=== PATIENT | female | born 1950 | race Caucasian/White ===

== ENCOUNTER 2018-02-23 15:28 | Inpatient (IN) ==
[2018-02-23] MEDS ORDERED: NS 1000 ML 1,000 ML ONE (15:44)
[2018-02-23] MEDS ORDERED: NS 1000 ML 1,000 ML IV SCH (16:00)
[2018-02-23 16:30] LABS: ABG BASE EXCESS 5.5 mmol/L (-2.0-2.0); ABG HCO3 29.9 mmol/L (22-26)
[2018-02-23 16:31] LABS: ABG ALLEN TEST POS; FRACTIONATED INSPIRED OXYGEN 21
[2018-02-23 16:33] VITALS: BMI 47.4
[2018-02-23] MEDS ORDERED: PREVNAR 13 IM ONE (16:33)
[2018-02-23] MEDS ORDERED: DUONEB 0.5 MG/3 MG NEB PRN (16:50)
--- NOTE | 2018-02-23 17:28 | RAD ---
PA and lateral Chest Indication: Shortness of breath Comparison: None available Findings: The trachea is midline. The cardiac silhouette is unremarkable. Increased central peribronchial thi ckening and prominence likely in the setting of pulmonary vascular congestion and or venous hypertens ion however a mild central bronchitis is a possibility in the appropriate clinical setting. No focal airspace opacity, pleural effusion or pneumothorax. The bony thorax is unremarkable. IMPRESSION: 1. No acute cardiopulmonary abnormality. Reported By:
[2018-02-23] MEDS ORDERED: ZOFRAN TAB 4 MG PO PRN (17:50)
[2018-02-23] MEDS ORDERED: ZOFRAN INJ 4 MG VIAL ONE (17:51)
[2018-02-23] MEDS ORDERED: NS 50 ML IV 50 ML IV ONE ×2 (17:51→17:59)
[2018-02-23] MEDS ORDERED: ZOFRAN INJ 4 MG VIAL IVP ONE (17:58)
[2018-02-23] MEDS: COREG TAB 6.25 MG PO SCH (18:03)
[2018-02-23] MEDS ORDERED: LASIX IVP ONE (18:39)
[2018-02-23] MEDS ORDERED: LASIX ONE (18:39)
[2018-02-23] MEDS: LASIX IVP SCH (18:43)
[2018-02-23] MEDS: REQUIP PO SCH (20:20)
[2018-02-24 05:21] LABS: BASOPHILS # (AUTO) 0.1 X10^3/uL (0.0-0.1); BASOPHILS % (AUTO) 0.9 % (0.2-1.0); EOSINOPHILS # (AUTO) 0.2 x10^3/uL (0.0-0.2); EOSINOPHILS % (AUTO) 2.2 % (0.9-2.9); HEMATOCRIT 30.8 % (36.0-47.0); HEMOGLOBIN 10.2 g/dL (12.0-16.0); LYMPHOCYTES # (AUTO) 1.1 X10^3/uL (1.3-2.9); MEAN CORPUSCULAR HEMOGLOBIN 27.6 pg (27.0-34.0); MEAN CORPUSCULAR VOLUME 83.6 fL (80.0-100.0); MEAN PLATELET VOLUME 7.5 fL (7.4-11.0); MONOCYTES # (AUTO) 0.9 x10^3/uL (0.3-0.8); MONOCYTES % (AUTO) 12.4 % (0.0-13.0); NEUTROPHILS # (AUTO) 5.4 x10^3/uL (2.2-4.8); NEUTROPHILS % (AUTO) 70.5 % (42.0-75.0); PLATELET COUNT 257 X10^3/uL (150.0-450.0); RED BLOOD COUNT 3.69 X10^6/uL (3.5-5.4); RED CELL DISTRIBUTION WIDTH 15.8 % (11.6-16.5); WHITE BLOOD COUNT 7.6 X10^3/uL (3.6-10.0)
[2018-02-24 05:29] LABS: ALANINE AMINOTRANSFERASE 17 Units/L (12-78); ALBUMIN 3.1 g/dL (3.4-5.0); ALKALINE PHOSPHATASE 77 Units/L (46-116); ASPARTATE AMINO TRANSFERASE 10 Units/L (15-37); BLOOD UREA NITROGEN 14 mg/dL (7-18); CALCIUM 9.2 mg/dL (8.5-10.1); CARBON DIOXIDE 32.2 mmol/L (21-32); CHLORIDE 100 mmol/L (98-107); COR CA(FOR HYPOALB) 9.9 mg/dL (8.5-10.1); COR NA(FOR HYPERGLY) 140 mmol/L (136-145); CREATININE 0.92 mg/dL (0.55-1.02); MAGNESIUM 1.3 mg/dL (1.7-2.9); SODIUM 140 mmol/L (136-145); TOTAL PROTEIN 6.2 g/dL (6.4-8.2); eGFR NON BLACK RACES > 60 (>60)
[2018-02-24] MEDS ORDERED: KLOR-CON PO PRN (06:16)
[2018-02-24] MEDS ORDERED: POTASSIUM CHL 60 MEQ/NS 0.45% 500 ML IV PRN (06:16)
[2018-02-24] MEDS ORDERED: POTASSIUM CHL 40 MEQ/NS 0.45% 500 ML IV PRN (06:16)
[2018-02-24] MEDS ORDERED: K-RIDER 10 MEQ/NS 100 ML 10 MEQ/100 ML BAG IV PRN (06:16)
[2018-02-24] MEDS ORDERED: MICRO K EXTEN CAP 10 MEQ PO PRN (06:16)
[2018-02-24] MEDS ORDERED: POTASSIUM CHLORIDE LIQ 20 MEQ UDC PO PRN (06:16)
[2018-02-24] MEDS: COREG TAB 6.25 MG PO SCH ×2 (06:18→09:30)
[2018-02-24] MEDS: MAGNESIUM SULFATE 1 GRAM/100 mL PREMIX 1 GM/100 ML BAG IV PRN ×4 (06:29→11:03)
[2018-02-24] MEDS: K-DUR TAB 20 MEQ PO PRN ×2 (06:34→10:27)
[2018-02-24] MEDS ORDERED: MAGNESIUM SULFATE 1 GRAM/100 mL PREMIX 1 G/100 ML BAG IV ONE ×3 (07:39→10:36)
[2018-02-24] MEDS ORDERED: SITAGLIPTIN METFORMIN PO SCH (09:00)
[2018-02-24] MEDS: HYZAAR 50/12.5 MG PO SCH (09:24)
[2018-02-24] MEDS: NexIUM PO SCH (09:24)
[2018-02-24] MEDS: LASIX IVP SCH ×2 (09:25→09:32)
[2018-02-24] MEDS: CYMBALTA PO SCH (09:30)
[2018-02-24] MEDS: COREG TAB 12.5 MG PO SCH (09:30)
[2018-02-24] MEDS ORDERED: GLUCOPHAGE ONE (10:19)
[2018-02-24] MEDS ORDERED: JANUVIA PO ONE (10:19)
[2018-02-24] MEDS ORDERED: LASIX ONE (10:19)
[2018-02-24] MEDS ORDERED: K-DUR TAB 20 MEQ PO ONE (10:19)
[2018-02-24] MEDS: JANUVIA PO SCH (10:26)
[2018-02-24] MEDS: LASIX PO SCH (10:27)
[2018-02-24] MEDS: GLUCOPHAGE PO SCH (10:27)
[2018-02-24] MEDS: REQUIP PO SCH (20:42)
[2018-02-24] MEDS: ULTRAM PO PRN (20:42)
[2018-02-25] MEDS: COREG TAB 12.5 MG PO SCH ×3 (00:06→08:01)
[2018-02-25 06:16] LABS: CALCIUM 9.2 mg/dL (8.5-10.1); CARBON DIOXIDE 33.1 mmol/L (21-32); CREATININE 1.99 mg/dL (0.55-1.02); MAGNESIUM 2.5 mg/dL (1.7-2.9)
[2018-02-25] MEDS ORDERED: GLUCOPHAGE ONE (07:43)
[2018-02-25] MEDS: CYMBALTA PO SCH (08:02)
[2018-02-25] MEDS: NexIUM PO SCH (08:02)
[2018-02-25] MEDS: GLUCOPHAGE PO SCH (08:02)
[2018-02-25] MEDS: JANUVIA PO SCH (08:02)
[2018-02-25] MEDS: LASIX PO SCH (08:02)
[2018-02-25] MEDS: HYZAAR 50/12.5 MG PO SCH (08:02)
[2018-02-25 20:04] LABS: CALCIUM 9.5 mg/dL (8.5-10.1); CARBON DIOXIDE 30.2 mmol/L (21-32); CREATININE 2.27 mg/dL (0.55-1.02)
[2018-02-25] MEDS ORDERED: NS 500 ML IV 500 ML IV ONE (20:31)
[2018-02-25] MEDS: REQUIP PO SCH (20:39)
[2018-02-25] MEDS: COREG TAB 6.25 MG PO SCH (20:39)
[2018-02-25] MEDS: NS 1000 ML 1,000 ML IV SCH (20:47)
[2018-02-25] MEDS: ULTRAM PO PRN (20:47)
[2018-02-26 05:46] LABS: BASOPHILS # (AUTO) 0.1 X10^3/uL (0.0-0.1); EOSINOPHILS # (AUTO) 0.4 x10^3/uL (0.0-0.2); EOSINOPHILS % (AUTO) 5.2 % (0.9-2.9); HEMATOCRIT 30.3 % (36.0-47.0); HEMOGLOBIN 9.9 g/dL (12.0-16.0); LYMPHOCYTES # (AUTO) 1.4 X10^3/uL (1.3-2.9); LYMPHOCYTES % (AUTO) 20.3 % (21.0-51.0); MEAN CORPUSCULAR HEMOGLOBIN 27.5 pg (27.0-34.0); MEAN CORPUSCULAR HGB CONC 32.7 g/dL (33.0-35.0); MEAN PLATELET VOLUME 7.8 fL (7.4-11.0); MONOCYTES # (AUTO) 0.7 x10^3/uL (0.3-0.8); MONOCYTES % (AUTO) 9.4 % (0.0-13.0); NEUTROPHILS # (AUTO) 4.6 x10^3/uL (2.2-4.8); NEUTROPHILS % (AUTO) 64.1 % (42.0-75.0); PLATELET COUNT 263 X10^3/uL (150.0-450.0); RED BLOOD COUNT 3.61 X10^6/uL (3.5-5.4); WHITE BLOOD COUNT 7.1 X10^3/uL (3.6-10.0)
[2018-02-26 06:06] LABS: ALANINE AMINOTRANSFERASE 16 Units/L (12-78); ALKALINE PHOSPHATASE 83 Units/L (46-116); ASPARTATE AMINO TRANSFERASE 13 Units/L (15-37); BLOOD UREA NITROGEN 27 mg/dL (7-18); CALCIUM 9.3 mg/dL (8.5-10.1); CARBON DIOXIDE 26.6 mmol/L (21-32); CHLORIDE 99 mmol/L (98-107); COR CA(FOR HYPOALB) 10.1 mg/dL (8.5-10.1); CREATININE 1.74 mg/dL (0.55-1.02); SODIUM 134 mmol/L (136-145); TOTAL PROTEIN 6.1 g/dL (6.4-8.2); eGFR NON BLACK RACES 31 (>60)
--- NOTE | 2018-02-26 07:04 | RAD ---
Examination: PA chest History: CHF Comparison 02/23/2018 Findings: Transverse heart diameter remains borderline enlarged. Essentially clear lungs and pleural spaces. There is no evidence for pneumonia, pulmonary edema or pleural fluid. Impression: Upper normal heart size, no acute process demonstrated. Reported By:
[2018-02-26] MEDS ORDERED: NS 500 ML IV 500 ML IV ONE (08:43)
[2018-02-26] MEDS: CYMBALTA PO SCH (08:48)
[2018-02-26] MEDS: NexIUM PO SCH (08:48)
[2018-02-26] MEDS: COREG TAB 6.25 MG PO SCH ×2 (08:48→20:31)
[2018-02-26] MEDS: JANUVIA PO SCH (08:48)
[2018-02-26] MEDS: NS 1000 ML 1,000 ML IV SCH ×3 (09:11→17:22)
[2018-02-26] MEDS: XARELTO PO SCH ×2 (10:30→20:31)
[2018-02-26 16:44] LABS: BLOOD UREA NITROGEN 25 mg/dL (7-18); CALCIUM 8.9 mg/dL (8.5-10.1); CARBON DIOXIDE 26.9 mmol/L (21-32); CHLORIDE 99 mmol/L (98-107); CREATININE 1.21 mg/dL (0.55-1.02); SODIUM 134 mmol/L (136-145); eGFR NON BLACK RACES 47 (>60)
[2018-02-26 16:59] LABS: B-TYPE NATRIURETIC PEPTIDE 67.7 pg/mL (0-79)
[2018-02-26] MEDS ORDERED: NS 1000 ML 1,000 ML IV SCH (17:00)
[2018-02-26] MEDS: REQUIP PO SCH (20:31)
[2018-02-26] MEDS: ULTRAM PO PRN (20:34)
[2018-02-27] MEDS: NS 1000 ML 1,000 ML IV SCH ×2 (01:15→07:07)
[2018-02-27 05:57] LABS: BASOPHILS # (AUTO) 0.1 X10^3/uL (0.0-0.1); BASOPHILS % (AUTO) 1.4 % (0.2-1.0); EOSINOPHILS # (AUTO) 0.3 x10^3/uL (0.0-0.2); EOSINOPHILS % (AUTO) 5.4 % (0.9-2.9); HEMATOCRIT 27.7 % (36.0-47.0); HEMOGLOBIN 9.1 g/dL (12.0-16.0); LYMPHOCYTES % (AUTO) 18.3 % (21.0-51.0); MEAN CORPUSCULAR HEMOGLOBIN 27.4 pg (27.0-34.0); MEAN CORPUSCULAR VOLUME 83.1 fL (80.0-100.0); MEAN PLATELET VOLUME 7.4 fL (7.4-11.0); MONOCYTES # (AUTO) 0.5 x10^3/uL (0.3-0.8); MONOCYTES % (AUTO) 9.4 % (0.0-13.0); NEUTROPHILS # (AUTO) 3.8 x10^3/uL (2.2-4.8); NEUTROPHILS % (AUTO) 65.5 % (42.0-75.0); PLATELET COUNT 222 X10^3/uL (150.0-450.0); RED BLOOD COUNT 3.33 X10^6/uL (3.5-5.4); RED CELL DISTRIBUTION WIDTH 15.8 % (11.6-16.5); WHITE BLOOD COUNT 5.7 X10^3/uL (3.6-10.0)
[2018-02-27 06:18] LABS: ALANINE AMINOTRANSFERASE 15 Units/L (12-78); ALBUMIN 2.8 g/dL (3.4-5.0); ALKALINE PHOSPHATASE 80 Units/L (46-116); ASPARTATE AMINO TRANSFERASE 13 Units/L (15-37); BLOOD UREA NITROGEN 22 mg/dL (7-18); CALCIUM 8.6 mg/dL (8.5-10.1); CARBON DIOXIDE 28.8 mmol/L (21-32); CHLORIDE 104 mmol/L (98-107); COR CA(FOR HYPOALB) 9.6 mg/dL (8.5-10.1); COR NA(FOR HYPERGLY) 139 mmol/L (136-145); CREATININE 0.99 mg/dL (0.55-1.02); SODIUM 138 mmol/L (136-145); TOTAL PROTEIN 5.7 g/dL (6.4-8.2); eGFR NON BLACK RACES 59 (>60)
[2018-02-27] MEDS: CYMBALTA PO SCH (08:27)
[2018-02-27] MEDS: XARELTO PO SCH (08:27)
[2018-02-27] MEDS: COREG TAB 6.25 MG PO SCH (08:27)
[2018-02-27] MEDS: JANUVIA PO SCH (08:27)
[2018-02-27] MEDS: NexIUM PO SCH (08:27)
[2018-02-27] MEDS: LASIX PO SCH (10:53)
[2018-02-27] MEDS ORDERED: NS 100 ML IV 100 ML IV ONE (11:54)
--- NOTE | 2018-02-27 13:36 | CT ---
HISTORY: Shortness of breath Study: CT chest with contrast Comparison: Same day radiograph Technique: Multiple axial images of the chest were obtained from the thoracic inlet to the upper abdo men after the administration of IV contrast. Dose reduction techniques including Automated Exposure Control (AEC) and adjustment of mA and kV were utilized. Findings: No vascular abnormality is identified. Cardiomegaly noted. No pericardial effusion. The aorta appear s normal in course and caliber. The lungs are clear without effusion, consolidation, or pneumothorax. Airways are patent. Mass or adenopathy is identified. Chronic granulomatous changes noted. Multilevel thoracolumbar disc disease is present. No acute osseous abnormality. The visualized portio ns of the upper abdomen are grossly unremarkable. IMPRESSION: 1. Cardiomegaly without acute abnormality. Reported By:
[2018-02-27 16:02] VITALS: BP 132/61
== END 2018-02-27 16:20 | disposition home or self-care (01) | DRG 303 ==
LOC: ICU → OBSVTOIN 15:34 → MED/SURG 02-24 13:31
PROVIDERS: ADMIT Obstetrics & Gynecology Obstetrics; ATTEND Obstetrics & Gynecology Obstetrics
DX: E11.65 Type 2 diabetes mellitus with hyperglycemia; Z23 Encounter for immunization; M06.80 Other specified rheumatoid arthritis, unspecified site; R09.02 Hypoxemia; I51.7 Cardiomegaly; I25.10 Atherosclerotic heart disease of native coronary artery without angina pectoris; I95.89 Other hypotension; R26.89 Other abnormalities of gait and mobility; R06.02 Shortness of breath
CPT/HCPCS: 36415; 36600; 71010; 71020; 71045; 71046; 71260; 80048; 80053; 82803; 82947; 83735; 83880; 84132; 85025; 93306; 97166; 97530; A4222; 90670; J1940; J2405; J3475; J7030; J7040; J7050; J7620

== ENCOUNTER 2018-09-07 10:58 | Inpatient (IN) ==
[2018-09-07] MEDS ORDERED: BACITRACIN ZINC ONE (14:16)
[2018-09-07] MEDS ORDERED: SILVADENE ONE (14:21)
[2018-09-07] MEDS ORDERED: AUGMENTIN 875 MG/125 MG TAB PO SCH (14:23)
[2018-09-07] MEDS: VALIUM PO PRN (15:03)
[2018-09-07] MEDS: NORCO 5/325 MG TAB PO PRN (15:04)
[2018-09-07 16:06] LABS: BASOPHILS # (AUTO) 0.3 X10^3/uL (0.0-0.1); BASOPHILS % (AUTO) 3.2 % (0.2-1.0); EOSINOPHILS # (AUTO) 0.3 x10^3/uL (0.0-0.2); EOSINOPHILS % (AUTO) 2.7 % (0.9-2.9); HEMOGLOBIN 10.5 g/dL (12.0-16.0); MEAN CORPUSCULAR HEMOGLOBIN 24.6 pg (27.0-34.0); MEAN CORPUSCULAR HGB CONC 30.7 g/dL (33.0-35.0); MEAN CORPUSCULAR VOLUME 79.9 fL (80.0-100.0); MEAN PLATELET VOLUME 7.6 fL (7.4-11.0); MONOCYTES # (AUTO) 0.9 x10^3/uL (0.3-0.8); MONOCYTES % (AUTO) 9.1 % (0.0-13.0); NEUTROPHILS # (AUTO) 7.3 x10^3/uL (2.2-4.8); PLATELET COUNT 255 X10^3/uL (150.0-450.0); RED BLOOD COUNT 4.26 X10^6/uL (3.5-5.4); WHITE BLOOD COUNT 9.7 X10^3/uL (3.6-10.0)
[2018-09-07 16:18] LABS: ALANINE AMINOTRANSFERASE 172 Units/L (12-78); ALBUMIN 2.8 g/dL (3.4-5.0); ALKALINE PHOSPHATASE 78 Units/L (46-116); ANISOCYTOSIS 1+; ASPARTATE AMINO TRANSFERASE 249 Units/L (15-37); BLOOD UREA NITROGEN 25 mg/dL (7-18); CALCIUM 9.5 mg/dL (8.5-10.1); CARBON DIOXIDE 24.3 mmol/L (21-32); CHLORIDE 101 mmol/L (98-107); COR CA(FOR HYPOALB) 10.5 mg/dL (8.5-10.1); CREATININE 1.73 mg/dL (0.55-1.02); HYPOCHROMASIA SLIGHT; PLATELET MORPHOLOGY COMMENT NORMAL (NORMAL); SODIUM 136 mmol/L (136-145); eGFR NON BLACK RACES 31 (>60)
--- NOTE | 2018-09-07 17:18 | PT/OTEVAL ---
PT/OT OBJECTIVES - HISTORY Prescription: PT consult Diagnosis: Cellulitis L LE with open wounds, B LE edema Precautions: falls, SOB PMH: Pt resides by herself and reports getting minimal help from friends and family who lives nearby. Pt is indep with bed mobiltiy, transfers. Pt owns a rolling walker and a rollator that she uses for long sidtance walking. 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 Prior Level of Function: Independent - COGNITION Mental Status: Alert, Oriented, Name, Date, Place, Purpose Communication Status: Verbal Ability to Follow Directions: 3 Step - PAIN Back Pain Scale: Severe (7-8) Left Leg Pain Scale: Severe (7-8) - BED MOBILITY Rolling: Moderate Scooting: Maximum Bridging: Maximum - TRANSFERS Supine to Sit: Maximum, x1 Sit to Stand: Moderate, x1 Sit or Stand Pivot: Moderate, x1 - BALANCE Static Sitting: Fair Standing: Poor Dynamic Sitting: Fair Standing: Total Assist - NEUROMOTOR/SENSATION Right Upper Ext Sensation: WFL Coordination: WFL Left Upper Ext Sensation: WFL Coordination: WFL - STRENGTH Bilateral UE Strength Number: 3 Other comment: 3-/5 - GAIT Comments: deferred gait traning due to saferty concerns. PT/OT ASSESSMENT - PT Problem List: Decreased Bed Mobility, Decreased Transfers, Decreased Gait, Decreased Balance, Decreased Safety, Decreased LE Strength - PT GOALS Short Term Goals Days: 10 Mobility: To be indep with bed mobility to allow return to pt's PLOF Transfers: To be indep with transfers to allow return to pt's PLOF Gait: To initiate gait to 30-50 ft to increase activity tolerance. Intermediate Goals Days: 20 Gait: To ambulate 90-100 ft to increase activity tolerqance. Balance: To improve S/D standing balance to G- to prevent from falls. ROM/Strength: To improve B LE mm strength 1-2 mm increments to improve stability. - PATIENT GOALS Weakness and Barriers: Pain If yes, explain: pain on L leg and back - FREQUENCY AND DURATION PT: 6x/week Expected Continuation of Care at Discharge: Determined on Progress
[2018-09-07] MEDS ORDERED: GLUCOPHAGE ONE ×2 (17:29→19:15)
[2018-09-07] MEDS: GLUCOPHAGE PO SCH (17:32)
--- NOTE | 2018-09-07 18:18 | PT/OTEVAL ---
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 Prior Level of Function: Independent Other, comment: Pt reported being independent with self care tasks 2 wks prior admission. Other: As per pt's report, pt lives alone in a one level home with a ramp, and is able to perform self care tasks independently. Pt's friend assists with devops. Pt reported decline in function 2 weeks prior admission in this hospital such as needed assistance to walk from bedside to bathroom for toileting, get in and out of walk in tub and needs extra time to perform basic self care tasks. Pt reported having the ff ADs: walker, scooter, and WC. Pt also reported having a portable oxygen and concetrator at home. - COGNITION Mental Status: Alert, Oriented, Name, Place, Purpose Communication Status: Verbal Ability to Follow Directions: 2 Step - PAIN Back Pain Scale: Severe (7-8) Left Leg Pain Scale: Severe (7-8) - ADL'S Feeding: Setup Grooming: Moderate Upper Body ADL: Dependent Lower Body ADL: Dependent Toileting: Dependent - BALANCE Static Sitting: Fair Standing: Not Tested Dynamic Sitting: Fair Standing: Not Tested - NEUROMOTOR/SENSATION Right Upper Ext Sensation: WFL Coordination: WFL Left Upper Ext Sensation: WFL Coordination: WFL - HAND DOMINANCE Extremity Function: Hand Dominance: Right - ROM Bilateral UE Muscle Tone: WFL - STRENGTH Bilateral UE Strength Number: 3 Other comment: 3-/5 on proximal mms; 3/5 on distal segments PT/OT ASSESSMENT - OT Problem List: Decreased Mobility ADL's, Decreased Dressing, Decreased Bathing, Decreased Grooming, Decreased UE Strength, Other Other, comment: decrased toileting, decreased FAT - PT GOALS Short Term Goals Days: 10 Mobility: To be indep with bed mobility to allow return to pt's PLOF Transfers: To be indep with transfers to allow return to pt's PLOF Gait: To initiate gait to 30-50 ft to increase activity tolerance. Halfway Goals Days: 20 Gait: To ambulate 90-100 ft to increase activity tolerqance. Balance: To improve S/D standing balance to G- to prevent from falls. ROM/Strength: To improve B LE mm strength 1-2 mm increments to improve stability. - OT GOALS Sales Promoter Goals Days: 20 days Mobility for ADL's: Pt will perform toilet t'frs from bedside > actual commode using AD with TA Safety Awareness: Pt will demo knowledge of ECTs, WSTs, PBMs, and JPTs during ADLs/exercises. Dressing: Pt will demo UB/LB dressing and footwear mgt independently using AEs PRN. Bathing: Pt will demo UB/LB bathing with setup utilizing DMEs/AEs PRN. Grooming: Pt will demo grooming/oral hygiene at sink level I. Upper Ext. Strength/Use: Pt will demo inc on BUE strength to 1/2 to 1 mm gr increments. Other: Pt will demo G FAT during exercises/ADLs/activities. Short Term Goals Days: 10 days Mobility for ADL's: Pt will perform toilet t'frs from bedside > BSC using AD with part A. Safety Awareness: Pt be educated with ECTs, WSTs, PBMs, and JPTs during ADLs/exercises. Dressing: Pt will demo UB/LB dressing and footwear mgt with touch A using AEs PRN. Bathing: Pt will demo UB/LB bathing with part A utilizing DMEs/AEs PRN. Grooming: Pt will demo grooming/oral hygiene at sink level with supv. Other: Pt will demo F FAT during exercises/ADLs/activities. - PATIENT GOALS Patient/Family Goals: "To dress, bathe, make coffee and get into the car."- per pt. Goals Discussed with Patient/Family: Yes Rehabilitation Potential: Good Justification for Potential: High PLOF, medical complexities, able to participate Weakness and Barriers: None - PLAN Suggested Treatment Plan: Therapeutic Activity, Self Care Training, Neuro Re- education, Therapeutic Ex with HEP, Home Management, Patient Education - FREQUENCY AND DURATION OT: 5x/wk for 20 days Expected Continuation of Care at Discharge: Determined on Progress Anticipated Equipment Needs: ADL AEs
[2018-09-07] MEDS: PULMICORT NEB TX 0.5 MG NEB SCH (20:17)
[2018-09-07] MEDS: SNACK - Diabetic Appropriate PO SCH (20:57)
[2018-09-07] MEDS: AUGMENTIN 875 MG/125 MG TAB PO SCH (20:58)
[2018-09-07] MEDS: CIPRO TAB 500 MG PO SCH (20:58)
[2018-09-07] MEDS: BACTROBAN TOPICAL OINT TOP SCH (20:58)
[2018-09-07] MEDS: NEURONTIN CAP 300 MG PO SCH (20:59)
[2018-09-07] MEDS ORDERED: ULTRAM PO SCH (21:00)
[2018-09-07] MEDS: MILK OF MAGNESIA PO SCH (21:00)
[2018-09-07] MEDS ORDERED: LEVEMIR SC SCH (21:00)
[2018-09-07] MEDS ORDERED: COLACE CAP 100 MG PO SCH (21:00)
[2018-09-07] MEDS ORDERED: REQUIP PO SCH (21:00)
[2018-09-07] MEDS: JANUVIA PO SCH (21:03)
[2018-09-08] MEDS: GLUCOPHAGE PO SCH ×2 (05:59→17:00)
[2018-09-08] MEDS: VALIUM PO PRN ×2 (06:22→19:14)
[2018-09-08 07:13] VITALS: BMI 43.9
[2018-09-08] MEDS: DUONEB 0.5 MG/3 MG NEB PRN ×2 (08:34→20:05)
[2018-09-08] MEDS: PULMICORT NEB TX 0.5 MG NEB SCH ×2 (08:35→20:05)
[2018-09-08] MEDS: NORCO 5/325 MG TAB PO PRN ×2 (08:47→19:14)
[2018-09-08] MEDS: NexIUM PO SCH (08:48)
[2018-09-08] MEDS: CULTURELLE PRO-WELL PROBIOTIC CAP PO SCH (08:49)
[2018-09-08] MEDS: AUGMENTIN 875 MG/125 MG TAB PO SCH ×2 (08:49→20:13)
[2018-09-08] MEDS: JANUVIA PO SCH ×2 (08:50→20:14)
[2018-09-08] MEDS: NEURONTIN CAP 300 MG PO SCH ×2 (08:50→20:13)
[2018-09-08] MEDS: MILK OF MAGNESIA PO SCH ×2 (08:51→20:15)
[2018-09-08] MEDS: CIPRO TAB 500 MG PO SCH ×2 (08:51→20:13)
[2018-09-08] MEDS ORDERED: ZEBETA TAB 5 MG PO SCH (09:00)
[2018-09-08] MEDS ORDERED: ALDACTONE TAB 25 MG PO SCH ×2 (09:00→21:00)
[2018-09-08] MEDS ORDERED: LASIX PO SCH (09:00)
[2018-09-08] MEDS ORDERED: LASIX IVP SCH (09:00)
[2018-09-08] MEDS: BACTROBAN TOPICAL OINT TOP SCH ×2 (09:00→20:16)
[2018-09-08] MEDS ORDERED: PATIENT'S HOME MEDICATION (Albuterol Sulfate [Proair Hfa] 1 PUFF) IN PRN (09:24)
[2018-09-08] MEDS ORDERED: ZOFRAN TAB 4 MG PO PRN (09:24)
[2018-09-08] MEDS ORDERED: PATIENT'S HOME MEDICATION (Sitagliptin-Metformin [Janumet] 1 TAB) PO SCH (09:30)
[2018-09-08] MEDS ORDERED: NexIUM PO SCH (10:00)
[2018-09-08] MEDS ORDERED: NORCO 5/325 MG TAB PO SCH (10:00)
[2018-09-08] MEDS ORDERED: NEURONTIN CAP 300 MG PO SCH (10:00)
[2018-09-08] MEDS: SILVADENE TOP SCH (10:30)
[2018-09-08 11:31] LABS: IRON 18 ug/dL (50-175)
[2018-09-08] MEDS: NEBIVOLOL 5 MG PO SCH (13:21)
--- NOTE | 2018-09-08 13:27 | RAD ---
HISTORY: Decreased appetite, abdominal spasms. Study: Acute abdominal series Comparison: Chest x-ray done 02/26/2010. Technique: KUB and upright views the abdomen provided as well as a frontal chest. Findings: Trachea is midline. There is cardiomegaly with aortic uncoiling and mild pulmonary vascular congestion. There is prominence of both hilar regions, likely vascular. No CHF or dense infiltrate is seen. Linear atelectasis is present right lower lobe which is subsegmental. Pleural spaces are clear. Osseous structures are intact. There is no evidence of free intraperitoneal air or fluid. There is generalized gaseous distention of the abdomen including stomach, small bowel and colon. Findings have the appearance of an abdominal ileus. No evidence of bowel obstruction is seen. There multiple calcified granulomas present within the spleen. The liver shadow appears prominent. Multilevel degenerative changes are present involving the lumbar spine. There is a thoracolumbar scoliosis. A right total hip arthroplasty is appreciated. IMPRESSION: Cardiomegaly with mild pulmonary vascular congestion. Linear subsegmental atelectasis is present in the right lung base. No CHF or dense infiltrate is seen. Generalized abdominal ileus. No bowel obstruction or perforation is seen. Slightly prominent liver shadow. Reported By:
[2018-09-08] MEDS: ZINC SULFATE PO SCH (14:02)
[2018-09-08] MEDS: COLACE CAP 100 MG PO SCH ×3 (14:02→20:15)
[2018-09-08] MEDS ORDERED: GLUCOPHAGE ONE (16:41)
[2018-09-08] MEDS: SNACK - Diabetic Appropriate PO SCH (20:12)
[2018-09-08] MEDS: VITAMIN C PO SCH (20:13)
[2018-09-08] MEDS: REQUIP PO SCH (20:14)
[2018-09-09] MEDS: NORCO 5/325 MG TAB PO PRN (05:53)
[2018-09-09] MEDS: VALIUM PO PRN (05:54)
[2018-09-09] MEDS: GLUCOPHAGE PO SCH ×2 (06:05→17:26)
[2018-09-09 06:08] LABS: ALBUMIN 2.7 g/dL (3.4-5.0); CALCIUM 9.3 mg/dL (8.5-10.1); CARBON DIOXIDE 24.3 mmol/L (21-32); COR CA(FOR HYPOALB) 10.3 mg/dL (8.5-10.1); CREATININE 1.7 mg/dL (0.55-1.02); TOTAL PROTEIN 5.7 g/dL (6.4-8.2)
[2018-09-09] MEDS: ZOFRAN TAB 4 MG PO PRN (09:05)
[2018-09-09] MEDS: NEBIVOLOL 5 MG PO SCH (09:07)
[2018-09-09] MEDS: CULTURELLE PRO-WELL PROBIOTIC CAP PO SCH (09:09)
[2018-09-09] MEDS: AUGMENTIN 875 MG/125 MG TAB PO SCH (09:09)
[2018-09-09] MEDS: NexIUM PO SCH (09:09)
[2018-09-09] MEDS: ZINC SULFATE PO SCH (09:09)
[2018-09-09] MEDS: NEURONTIN CAP 300 MG PO SCH ×2 (09:10→20:50)
[2018-09-09] MEDS: VITAMIN C PO SCH ×2 (09:10→20:49)
[2018-09-09] MEDS: CIPRO TAB 500 MG PO SCH (09:10)
[2018-09-09] MEDS: SILVADENE TOP SCH (09:19)
[2018-09-09] MEDS: BACTROBAN TOPICAL OINT TOP SCH ×2 (09:19→20:53)
[2018-09-09] MEDS: MILK OF MAGNESIA PO SCH (09:19)
[2018-09-09] MEDS: COLACE CAP 100 MG PO SCH (09:19)
[2018-09-09] MEDS: JANUVIA PO SCH ×2 (09:19→20:51)
[2018-09-09] MEDS ORDERED: MILK OF MAGNESIA PO PRN (10:00)
[2018-09-09] MEDS ORDERED: NS 100 ML IV 100 ML with VENOFER 400 MG IV NR ×2 (10:00)
[2018-09-09] MEDS ORDERED: COLACE CAP 100 MG PO PRN (10:00)
[2018-09-09] MEDS: BACTRIM DS TAB PO SCH ×2 (10:03→20:50)
[2018-09-09] MEDS: DUONEB 0.5 MG/3 MG NEB PRN (11:53)
[2018-09-09] MEDS: PULMICORT NEB TX 0.5 MG NEB SCH ×2 (11:53→20:56)
[2018-09-09] MEDS ORDERED: VALIUM PO ONE (14:22)
--- NOTE | 2018-09-09 14:52 | US ---
HISTORY: Elevated LFTs Study: Ultrasound of the liver Comparison: No priors Technique: Grayscale, color and duplex Doppler evaluation of the liver is provided. Findings: Liver is normal in size. Echogenicity of the liver is normal. There is no evidence of ascites. No evidence of hepatic mass or ductal ectasia is seen. Common bile duct measures 3.8 mm in diameter. Doppler studies of portal and hepatic veins are normal. IMPRESSION: Normal ultrasound of the liver. Reported By:
[2018-09-09] MEDS: REQUIP PO SCH (20:50)
[2018-09-09] MEDS: SNACK - Diabetic Appropriate PO SCH (21:38)
[2018-09-10 05:25] LABS: BASOPHILS # (AUTO) 0.1 X10^3/uL (0.0-0.1); BASOPHILS % (AUTO) 1.1 % (0.2-1.0); EOSINOPHILS # (AUTO) 0.4 x10^3/uL (0.0-0.2); EOSINOPHILS % (AUTO) 4.5 % (0.9-2.9); HEMATOCRIT 33.3 % (36.0-47.0); HEMOGLOBIN 10.2 g/dL (12.0-16.0); LYMPHOCYTES # (AUTO) 1.1 X10^3/uL (1.3-2.9); LYMPHOCYTES % (AUTO) 11.8 % (21.0-51.0); MEAN CORPUSCULAR HEMOGLOBIN 24.5 pg (27.0-34.0); MEAN CORPUSCULAR HGB CONC 30.7 g/dL (33.0-35.0); MEAN CORPUSCULAR VOLUME 79.8 fL (80.0-100.0); MEAN PLATELET VOLUME 7.8 fL (7.4-11.0); MONOCYTES # (AUTO) 0.8 x10^3/uL (0.3-0.8); MONOCYTES % (AUTO) 9.4 % (0.0-13.0); NEUTROPHILS # (AUTO) 6.6 x10^3/uL (2.2-4.8); NEUTROPHILS % (AUTO) 73.2 % (42.0-75.0); PLATELET COUNT 200 X10^3/uL (150.0-450.0); RED BLOOD COUNT 4.17 X10^6/uL (3.5-5.4); RED CELL DISTRIBUTION WIDTH 20.1 % (11.6-16.5)
[2018-09-10 05:41] LABS: ANISOCYTOSIS 1+; HYPOCHROMASIA SLIGHT; PLATELET MORPHOLOGY COMMENT NORMAL (NORMAL)
[2018-09-10] MEDS ORDERED: GLUCOPHAGE ONE ×2 (05:43→07:27)
[2018-09-10] MEDS: GLUCOPHAGE PO SCH ×2 (06:04→18:30)
[2018-09-10] MEDS: IMODIUM CAP 2 MG PO PRN ×2 (06:44→09:39)
[2018-09-10] MEDS: NEBIVOLOL 5 MG PO SCH (08:06)
[2018-09-10] MEDS: CULTURELLE PRO-WELL PROBIOTIC CAP PO SCH (08:07)
[2018-09-10] MEDS: NEURONTIN CAP 300 MG PO SCH ×2 (08:07→20:08)
[2018-09-10] MEDS: NexIUM PO SCH (08:08)
[2018-09-10] MEDS: JANUVIA PO SCH ×2 (08:10→20:05)
[2018-09-10] MEDS: VITAMIN C PO SCH ×2 (08:10→20:04)
[2018-09-10] MEDS: BACTRIM DS TAB PO SCH ×3 (08:11→20:04)
[2018-09-10] MEDS: ZINC SULFATE PO SCH (08:12)
[2018-09-10] MEDS: PULMICORT NEB TX 0.5 MG NEB SCH ×2 (08:35→21:54)
[2018-09-10] MEDS ORDERED: LINZESS PO SCH (09:00)
[2018-09-10] MEDS ORDERED: LINZESS PO ONE (09:18)
[2018-09-10] MEDS: SILVADENE TOP SCH (09:28)
[2018-09-10] MEDS: DIFLUCAN PO SCH (13:50)
[2018-09-10] MEDS ORDERED: CORTEF ONE (17:40)
[2018-09-10] MEDS: CORTEF PO SCH (17:46)
[2018-09-10] MEDS: REQUIP PO SCH (20:04)
[2018-09-10] MEDS: SNACK - Diabetic Appropriate PO SCH (20:08)
[2018-09-11] MEDS: NORCO 5/325 MG TAB PO PRN ×2 (05:21→20:23)
[2018-09-11 05:57] LABS: ALANINE AMINOTRANSFERASE 75 Units/L (12-78); ALBUMIN 2.9 g/dL (3.4-5.0); ALKALINE PHOSPHATASE 93 Units/L (46-116); ASPARTATE AMINO TRANSFERASE 32 Units/L (15-37); BLOOD UREA NITROGEN 20 mg/dL (7-18); CALCIUM 9.1 mg/dL (8.5-10.1); CARBON DIOXIDE 21.6 mmol/L (21-32); CHLORIDE 97 mmol/L (98-107); CREATININE 1.78 mg/dL (0.55-1.02); SODIUM 132 mmol/L (136-145); TOTAL PROTEIN 6.1 g/dL (6.4-8.2); eGFR NON BLACK RACES 30 (>60)
[2018-09-11] MEDS: GLUCOPHAGE PO SCH ×2 (06:26→16:14)
[2018-09-11] MEDS ORDERED: CORTEF ONE ×2 (08:53→20:30)
[2018-09-11] MEDS: NexIUM PO SCH (09:05)
[2018-09-11] MEDS: ZINC SULFATE PO SCH (09:05)
[2018-09-11] MEDS: BACTRIM DS TAB PO SCH ×2 (09:05→20:23)
[2018-09-11] MEDS: CORTEF PO SCH ×2 (09:06→20:30)
[2018-09-11] MEDS: CULTURELLE PRO-WELL PROBIOTIC CAP PO SCH (09:06)
[2018-09-11] MEDS: VITAMIN C PO SCH ×2 (09:06→20:27)
[2018-09-11] MEDS: NEURONTIN CAP 300 MG PO SCH ×2 (09:06→20:23)
[2018-09-11] MEDS: SILVADENE TOP SCH (09:07)
[2018-09-11] MEDS: NEBIVOLOL 5 MG PO SCH (09:07)
[2018-09-11] MEDS: JANUVIA PO SCH ×2 (09:07→20:27)
[2018-09-11] MEDS: ZOFRAN TAB 4 MG PO PRN (09:10)
[2018-09-11] MEDS ORDERED: VOLTAREN 1 % GEL MULTI DOSE TUBE ONE (09:24)
[2018-09-11] MEDS: PULMICORT NEB TX 0.5 MG NEB SCH ×2 (09:40→20:54)
[2018-09-11] MEDS ORDERED: VOLTAREN 1 % GEL MULTI DOSE TUBE TOP PRN (19:38)
[2018-09-11] MEDS: IMODIUM CAP 2 MG PO PRN (20:22)
[2018-09-11] MEDS: REQUIP PO SCH (20:22)
[2018-09-11] MEDS: SNACK - Diabetic Appropriate PO SCH (20:48)
[2018-09-12] MEDS: GLUCOPHAGE PO SCH (06:23)
[2018-09-12 06:41] LABS: ALBUMIN 2.7 g/dL (3.4-5.0); CALCIUM 9.1 mg/dL (8.5-10.1); CARBON DIOXIDE 22.6 mmol/L (21-32); COR CA(FOR HYPOALB) 10.1 mg/dL (8.5-10.1); CREATININE 1.83 mg/dL (0.55-1.02); TOTAL PROTEIN 5.6 g/dL (6.4-8.2)
[2018-09-12] MEDS ORDERED: CORTEF ONE ×2 (07:21→17:33)
[2018-09-12] MEDS: NEBIVOLOL 5 MG PO SCH (08:31)
[2018-09-12] MEDS: NexIUM PO SCH (08:31)
[2018-09-12] MEDS: ZINC SULFATE PO SCH (08:32)
[2018-09-12] MEDS: JANUVIA PO SCH (08:32)
[2018-09-12] MEDS: BACTRIM DS TAB PO SCH ×2 (08:32→20:20)
[2018-09-12] MEDS: CORTEF PO SCH ×2 (08:33→17:34)
[2018-09-12] MEDS: VITAMIN C PO SCH ×2 (08:33→20:20)
[2018-09-12] MEDS: SILVADENE TOP SCH (08:34)
[2018-09-12] MEDS: NEURONTIN CAP 300 MG PO SCH ×2 (08:34→20:20)
[2018-09-12] MEDS: CULTURELLE PRO-WELL PROBIOTIC CAP PO SCH (08:34)
[2018-09-12] MEDS: PULMICORT NEB TX 0.5 MG NEB SCH ×2 (09:17→20:58)
[2018-09-12] MEDS ORDERED: LASIX IVP ONE (10:14)
[2018-09-12] MEDS: DIFLUCAN PO SCH (12:28)
[2018-09-12] MEDS ORDERED: LASIX ONE (12:41)
[2018-09-12] MEDS: REQUIP PO SCH (20:20)
[2018-09-12] MEDS: SNACK - Diabetic Appropriate PO SCH (20:21)
[2018-09-13 05:10] LABS: ALANINE AMINOTRANSFERASE 43 Units/L (12-78); ALBUMIN 2.8 g/dL (3.4-5.0); ALKALINE PHOSPHATASE 77 Units/L (46-116); ASPARTATE AMINO TRANSFERASE 18 Units/L (15-37); BLOOD UREA NITROGEN 21 mg/dL (7-18); CALCIUM 9.1 mg/dL (8.5-10.1); CARBON DIOXIDE 22.9 mmol/L (21-32); CHLORIDE 101 mmol/L (98-107); COR CA(FOR HYPOALB) 10.1 mg/dL (8.5-10.1); CREATININE 1.98 mg/dL (0.55-1.02); SODIUM 134 mmol/L (136-145); TOTAL PROTEIN 5.6 g/dL (6.4-8.2); eGFR NON BLACK RACES 27 (>60)
[2018-09-13] MEDS: NORCO 5/325 MG TAB PO PRN (06:53)
[2018-09-13] MEDS: PULMICORT NEB TX 0.5 MG NEB SCH ×2 (08:00→20:09)
[2018-09-13] MEDS ORDERED: GLUCOPHAGE PO SCH (09:00)
[2018-09-13] MEDS ORDERED: CORTEF ONE ×3 (09:13→18:33)
[2018-09-13] MEDS: NexIUM PO SCH (09:27)
[2018-09-13] MEDS: CORTEF PO SCH ×3 (09:27→18:33)
[2018-09-13] MEDS: ZINC SULFATE PO SCH (09:28)
[2018-09-13] MEDS: CULTURELLE PRO-WELL PROBIOTIC CAP PO SCH (09:28)
[2018-09-13] MEDS: VITAMIN C PO SCH ×2 (09:28→20:29)
[2018-09-13] MEDS: NEURONTIN CAP 300 MG PO SCH ×2 (09:28→20:29)
[2018-09-13] MEDS: JANUVIA PO SCH (09:29)
[2018-09-13] MEDS: GLUCOPHAGE PO SCH (09:30)
[2018-09-13] MEDS: SILVADENE TOP SCH (09:31)
[2018-09-13] MEDS: REQUIP PO SCH (20:29)
[2018-09-13] MEDS: SNACK - Diabetic Appropriate PO SCH (20:33)
[2018-09-13] MEDS: VALIUM PO PRN (23:28)
[2018-09-14] MEDS: DUONEB 0.5 MG/3 MG NEB PRN ×3 (06:10→19:44)
[2018-09-14] MEDS ORDERED: CORTEF ONE ×3 (08:27→19:25)
[2018-09-14] MEDS ORDERED: GLUCOPHAGE ONE (08:28)
[2018-09-14] MEDS: NexIUM PO SCH (09:09)
[2018-09-14] MEDS: JANUVIA PO SCH (09:09)
[2018-09-14] MEDS: CORTEF PO SCH ×4 (09:09→19:37)
[2018-09-14] MEDS: VITAMIN C PO SCH ×2 (09:10→21:44)
[2018-09-14] MEDS: NEURONTIN CAP 300 MG PO SCH ×2 (09:10→21:44)
[2018-09-14] MEDS: CULTURELLE PRO-WELL PROBIOTIC CAP PO SCH (09:11)
[2018-09-14] MEDS: GLUCOPHAGE PO SCH (09:11)
[2018-09-14] MEDS: ZINC SULFATE PO SCH (09:11)
[2018-09-14] MEDS: PULMICORT NEB TX 0.5 MG NEB SCH ×3 (09:14→20:01)
[2018-09-14] MEDS: SILVADENE TOP SCH (09:16)
[2018-09-14] MEDS: DIFLUCAN PO SCH (12:47)
[2018-09-14] MEDS: REQUIP PO SCH (21:44)
[2018-09-14] MEDS: SNACK - Diabetic Appropriate PO SCH (21:44)
[2018-09-15] MEDS: IMODIUM CAP 2 MG PO PRN (03:34)
[2018-09-15] MEDS ORDERED: CORTEF ONE ×3 (08:06→17:09)
[2018-09-15] MEDS ORDERED: GLUCOPHAGE ONE (08:06)
[2018-09-15] MEDS: PULMICORT NEB TX 0.5 MG NEB SCH ×2 (09:20→20:33)
[2018-09-15] MEDS: DUONEB 0.5 MG/3 MG NEB PRN ×2 (09:20→20:33)
[2018-09-15] MEDS: NexIUM PO SCH (09:37)
[2018-09-15] MEDS: NEURONTIN CAP 300 MG PO SCH ×2 (09:37→20:49)
[2018-09-15] MEDS: CULTURELLE PRO-WELL PROBIOTIC CAP PO SCH (09:37)
[2018-09-15] MEDS: VITAMIN C PO SCH ×2 (09:37→20:49)
[2018-09-15] MEDS: ZINC SULFATE PO SCH (09:37)
[2018-09-15] MEDS: CORTEF PO SCH ×3 (09:38→17:13)
[2018-09-15] MEDS: JANUVIA PO SCH (09:38)
[2018-09-15] MEDS: SILVADENE TOP SCH (09:39)
[2018-09-15] MEDS: GLUCOPHAGE PO SCH (09:39)
[2018-09-15] MEDS: REQUIP PO SCH (20:49)
[2018-09-15] MEDS: SNACK - Diabetic Appropriate PO SCH (21:23)
[2018-09-15] MEDS: VALIUM PO PRN (21:34)
[2018-09-16 06:41] LABS: CALCIUM 9.7 mg/dL (8.5-10.1); CARBON DIOXIDE 23.2 mmol/L (21-32); COR CA(FOR HYPOALB) 10.5 mg/dL (8.5-10.1); CREATININE 1.59 mg/dL (0.55-1.02); TOTAL PROTEIN 5.8 g/dL (6.4-8.2)
[2018-09-16] MEDS ORDERED: GLUCOPHAGE ONE (07:29)
[2018-09-16] MEDS ORDERED: CORTEF ONE ×2 (07:29→13:16)
[2018-09-16] MEDS: CORTEF PO SCH ×3 (08:19→13:42)
[2018-09-16] MEDS: NexIUM PO SCH (08:27)
[2018-09-16] MEDS: GLUCOPHAGE PO SCH ×2 (08:27→08:30)
[2018-09-16] MEDS: ZINC SULFATE PO SCH (08:27)
[2018-09-16] MEDS: VITAMIN C PO SCH ×2 (08:28→20:15)
[2018-09-16] MEDS: JANUVIA PO SCH (08:28)
[2018-09-16] MEDS: CULTURELLE PRO-WELL PROBIOTIC CAP PO SCH (08:29)
[2018-09-16] MEDS: NEURONTIN CAP 300 MG PO SCH ×2 (08:30→20:15)
[2018-09-16] MEDS: SILVADENE TOP SCH (08:30)
[2018-09-16] MEDS: IMODIUM CAP 2 MG PO PRN (08:38)
[2018-09-16] MEDS: PULMICORT NEB TX 0.5 MG NEB SCH ×2 (09:08→20:28)
[2018-09-16] MEDS: DUONEB 0.5 MG/3 MG NEB PRN ×2 (09:08→20:28)
[2018-09-16] MEDS ORDERED: CORTEF PO SCH (09:45)
[2018-09-16] MEDS: SNACK - Diabetic Appropriate PO SCH (20:02)
[2018-09-16] MEDS: REQUIP PO SCH (20:15)
[2018-09-17 08:02] VITALS: BP 130/61
[2018-09-17] MEDS: DUONEB 0.5 MG/3 MG NEB PRN (08:17)
[2018-09-17] MEDS: PULMICORT NEB TX 0.5 MG NEB SCH (08:17)
[2018-09-17] MEDS ORDERED: CORTEF ONE ×2 (08:30→12:41)
[2018-09-17] MEDS ORDERED: GLUCOPHAGE ONE (08:31)
[2018-09-17] MEDS: NexIUM PO SCH (09:22)
[2018-09-17] MEDS: VITAMIN C PO SCH (09:22)
[2018-09-17] MEDS: CULTURELLE PRO-WELL PROBIOTIC CAP PO SCH (09:22)
[2018-09-17] MEDS: GLUCOPHAGE PO SCH ×2 (09:22→09:27)
[2018-09-17] MEDS: ZINC SULFATE PO SCH (09:22)
[2018-09-17] MEDS: JANUVIA PO SCH (09:23)
[2018-09-17] MEDS: NEURONTIN CAP 300 MG PO SCH (09:23)
[2018-09-17] MEDS: CORTEF PO SCH ×2 (09:25→12:38)
[2018-09-17] MEDS: SILVADENE TOP SCH (09:32)
== END 2018-09-17 12:45 | disposition home or self-care (01) | DRG 949 ==
LOC: MED/SURG 13:47
PROVIDERS: ADMIT Obstetrics & Gynecology Obstetrics; ATTEND Obstetrics & Gynecology Obstetrics
DX: J44.9 Chronic obstructive pulmonary disease, unspecified; R74.8 Abnormal levels of other serum enzymes; R60.0 Localized edema; L03.116 Cellulitis of left lower limb; X58.XXXA Exposure to other specified factors, initial encounter; S81.832A Puncture wound without foreign body, left lower leg, initial encounter; E11.22 Type 2 diabetes mellitus with diabetic chronic kidney disease; K21.9 Gastro-esophageal reflux disease without esophagitis; N18.9 Chronic kidney disease, unspecified; B95.62 Methicillin resistant Staphylococcus aureus infection as the cause of diseases classified elsewhere; G25.81 Restless legs syndrome; R94.4 Abnormal results of kidney function studies; R26.89 Other abnormalities of gait and mobility; I87.8 Other specified disorders of veins; E11.65 Type 2 diabetes mellitus with hyperglycemia; Z51.89 Encounter for other specified aftercare
CPT/HCPCS: 36415; 74022; 76705; 80053; 82270; 82607; 82728; 82746; 83540; 84466; 85025; 87070; 87075; 94640; 94760; 97110; 97112; 97116; 97162; 97166; 97530; 97535; A4222; J1756; J1940; J3490; J7050; J7620; J7626; S0119; S0181